=== PATIENT | male | born 1940 | race Caucasian/White ===

== ENCOUNTER 2017-03-23 07:27 | Day surgery (SDC) | payer MEDICARE, BC ==
[2017-03-23] MEDS ORDERED: BUPIVACAINE/EPI 0.25% 50 ML SOL ONE ×3 (07:35→08:34)
[2017-03-23] MEDS ORDERED: LIDOCAINE HCL 1% ONE (08:12)
[2017-03-23] MEDS ORDERED: PROPOFOL 500 MG/50 ML EMU IV ONE (08:12)
[2017-03-23] MEDS ORDERED: FENTANYL 100MCG/2ML SOL ONE (08:13)
[2017-03-23] MEDS ORDERED: MIDAZOLAM 2 MG/2 ML SOL ONE (08:13)
[2017-03-23] MEDS ORDERED: CEFAZOLIN SODIUM 1 GM PDS ONE (08:31)
[2017-03-23] MEDS ORDERED: KETOROLAC TROMETHAMINE 30 MG/ML SOL ONE (08:31)
[2017-03-23 10:59] VITALS: TEMP 97
[2017-03-23 11:48] VITALS: BP 120/79; PULSE 74; RESP 16; O2SAT 96
== END 2017-03-23 11:44 | disposition home or self-care (01) | DRG 395 ==
LOC: SURG 07:27
PROVIDERS: ATTEND Surgery
DX: K40.90 Unilateral inguinal hernia, without obstruction or gangrene, not specified as recurrent (principal)
CPT/HCPCS: J0690; J1885; J2001; J2250; J3010; A6402; C1781; J2704

== ENCOUNTER 2017-10-19 02:06 | Emergency (ER) | payer MEDICARE, BC ==
[2017-10-19 02:15] VITALS: TEMP 96.2
[2017-10-19] MEDS ORDERED: ONDANSETRON HCL 4 MG/2 ML SOL IV ONE ×2 (02:34→03:45)
[2017-10-19] MEDS ORDERED: ALUMINUM/MAGNESIUM 30 ML SUS ONE (02:53)
[2017-10-19] MEDS ORDERED: LIDOCAINE HCL 2% (VISCOUS) 20 ML SOL ONE (02:53)
[2017-10-19] MEDS ORDERED: LIDOCAINE HCL 2% (VISCOUS) 20 ML SOL MT ONE (02:55)
[2017-10-19] MEDS ORDERED: ALUMINUM/MAGNESIUM 30 ML SUS PO ONE (02:55)
[2017-10-19] MEDS ORDERED: ONDANSETRON HCL 4 MG/2 ML SOL IM ONE (02:58)
[2017-10-19 03:01] LABS: BASOPHILS % (AUTO) 1 % (0-3); EOSINOPHILS % (AUTO) 1 % (0-9); HEMATOCRIT 47 % (39-53); MEAN CORPUSCULAR HGB CONC 31.7 gm/dl (32.0-36.0); MEAN CORPUSCULAR VOLUME 87 fL (80-100); MONOCYTES % (AUTO) 7.6 % (0-12); NEUTROPHILS % (AUTO) 78.9 % (37-80)
[2017-10-19 03:18] LABS: ALBUMIN 3.3 gm/dl (3.4-5.0); ALT 44 IU/L (14-63); CALCIUM 8.1 mg/dl (8.5-10.1); GLOM FILT RATE 64 mL/min (>60); POTASSIUM 3.8 mMol/L (3.5-5.1); SODIUM 138 mMol/L (136-145)
[2017-10-19] MEDS ORDERED: SODIUM CHLORIDE 0.9% 1000ML 1,000 ML IV SCH (03:30)
[2017-10-19] MEDS ORDERED: MORPHINE SULFATE 10 MG/ML SOL IV ONE (03:41)
[2017-10-19] MEDS ORDERED: ONDANSETRON HCL 4 MG/2 ML SOL ONE (03:43)
[2017-10-19] MEDS ORDERED: MORPHINE SULFATE 10 MG/ML SOL ONE (03:46)
[2017-10-19] MEDS ORDERED: TRAMADOL HYDROCHLORIDE 50 MG TAB PO ONE (05:01)
[2017-10-19] MEDS ORDERED: APAP/OXYCODONE 325/5 TAB PO ONE (05:04)
[2017-10-19] MEDS ORDERED: APAP/OXYCODONE 325/5 TAB ONE (05:05)
[2017-10-19 06:04] VITALS: BP 137/85; PULSE 75; RESP 18; O2SAT 95
[2017-10-19 06:58] LABS: APPEARANCE,URINE Clear; BILIRUBIN,URINE NEGATIVE (NEGATIVE); COLOR,URINE Yellow; GLUCOSE, URINE (UA) NEGATIVE (NEGATIVE); KETONES,URINE NEGATIVE (NEGATIVE); LEUKOCYTE ESTERASE ,URINE NEGATIVE (NEGATIVE); NITRATE,URINE NEGATIVE (NEGATIVE); OCCULT BLOOD,URINE NEGATIVE (NEG-TRACE); PH,URINE 6.5; UROBILINOGEN,URINE 0.2 (0.2-1.0 EU)
[2017-10-19 07:25] LABS: RBC,URINE NEG (0-3AV/HPF); WBC,URINE NEG (0-5AV/HPF)
== END 2017-10-19 05:48 | disposition home or self-care (01) | DRG 446 ==
LOC: ED 02:06
DX: K80.20 Calculus of gallbladder without cholecystitis without obstruction (principal)
CPT/HCPCS: 36415; 74177; 80053; 81001; 82150; 84484; 85025; 87040; 93005; 99285; J2270; J2405; Q9967

== ENCOUNTER 2017-10-20 15:21 | Emergency (ER) | payer MEDICARE, BC ==
[2017-10-20] MEDS ORDERED: HYDROMORPHONE HCL 2 MG/ML SOL IM ONE (15:49)
[2017-10-20] MEDS ORDERED: HYDROMORPHONE HCL 2 MG/ML SOL IV ONE ×2 (15:51→18:16)
[2017-10-20 15:52] LABS: BASOPHILS % (AUTO) 0 % (0-3); EOSINOPHILS % (AUTO) 0 % (0-9); HEMATOCRIT 43 % (39-53); MEAN CORPUSCULAR HGB CONC 33.9 gm/dl (32.0-36.0); MEAN CORPUSCULAR VOLUME 88 fL (80-100); MONOCYTES % (AUTO) 10.3 % (0-12); NEUTROPHILS % (AUTO) 76.6 % (37-80)
[2017-10-20] MEDS ORDERED: HYDROMORPHONE 1 MG/ML SYRINGE ONE ×2 (15:52→18:16)
[2017-10-20] MEDS: SODIUM CHLORIDE 0.9% FLUSH 10 ML SOL IV PRN ×2 (16:00→18:17)
[2017-10-20] MEDS ORDERED: SODIUM CHLORIDE 0.9% 1000ML 1,000 ML IV SCH (16:00)
[2017-10-20 16:05] LABS: ALBUMIN 3.4 gm/dl (3.4-5.0); CALCIUM 8.5 mg/dl (8.5-10.1); POTASSIUM 3.8 mMol/L (3.5-5.1)
[2017-10-20] MEDS ORDERED: METRONIDAZOLE 500 MG (PREMIX) 500 MG/100 ML SOL IV ONE ×2 (16:25→18:20)
[2017-10-20] MEDS ORDERED: CEFTRIAXONE 1 GM (PREMIX) 1 GM/50 ML SOL IV ONE (16:28)
[2017-10-20] MEDS ORDERED: CEFTRIAXONE 1 GM PDS ONE (16:29)
[2017-10-20 18:30] VITALS: RESP 18
[2017-10-20 18:45] VITALS: TEMP 99.9
[2017-10-20 18:49] VITALS: BP 151/98; PULSE 91; O2SAT 94
== END 2017-10-20 18:35 | disposition short-term general hospital (02) | DRG 446 ==
LOC: ED 15:21
DX: K80.00 Calculus of gallbladder with acute cholecystitis without obstruction (principal)
CPT/HCPCS: 36415; 80053; 85025; 87040; 99291; J0696; J1170